=== PATIENT | female | born 1975 | race Caucasian/White ===

== ENCOUNTER → 2023-07-31 07:59 | Outpatient (REF) | payer BC, OTHER, SELFPAY | LOC: RCS 07:59 | PROVIDERS: ATTENDING PHYSICIAN Internal Medicine Cardiovascular Disease; FAMILY PHYSICIAN Nurse Practitioner Family | DX: R07.89 Other chest pain (principal) | CPT/HCPCS: 93306 ==

== ENCOUNTER → 2024-02-11 17:02 | Outpatient (REF) | payer BC, OTHER, SELFPAY | LOC: HWRAD 17:02 | PROVIDERS: FAMILY PHYSICIAN Nurse Practitioner Family | DX: J18.9 Pneumonia, unspecified organism (principal) | CPT/HCPCS: 71046 ==